=== PATIENT | male | born 1980 | race Caucasian/White ===

== ENCOUNTER → 2017-06-24 | Outpatient (CLI) | payer OTHER ==
[2017-06-24 14:53] LABS: BASO % 0.2 %; BASO ABS # 0.02 K/uL (0-0.2); EOS % 1.4 %; EOS ABS # 0.15 K/uL (0-0.5); HEMATOCRIT 45.3 % (42-52); HEMOGLOBIN 16.5 g/dL (14.0-18.0); IG# 0.04 K/uL (0.00-0.02); LYMPH % 28.7 %; MEAN CELL VOLUME 85.8 fL (80-100); MEAN CORPUSCULAR HEMOGLOBIN 31.3 pg (25-34); MEAN CORPUSCULAR HGB CONC 36.4 g/dl (32-36); MEAN PLATELET VOLUME 10.4 fL (7.4-10.4); MONO % 9.1 %; MONO ABS # 0.95 K/uL (0.11-0.59); NEUT % 60.2 %; NEUT ABS # 6.29 K/uL (1.4-6.5); PLATELET COUNT 260 K/uL (130-400); RED CELL DISTRIBUTION WIDTH CV 12.1 % (11.5-14.5); RED CELL DISTRIBUTION WIDTH SD 37.7 fL (36.4-46.3); WHITE BLOOD COUNT 10.45 K/uL (4.8-10.8)
[2017-06-24 15:22] LABS: ALBUMIN 3.9 gm/dl (3.4-5.0); ALKALINE PHOSPHATASE 70 U/L (45-117); ALT/SGPT 44 U/L (12-78); AST/SGOT 23 U/L (15-37); BLOOD UREA NITROGEN 15 mg/dl (7-18); CALCIUM 9.2 mg/dl (8.5-10.1); CARBON DIOXIDE 33 mmol/L (21-32); CHOLESTEROL 170 mg/dl (0-200); CREATININE 0.97 mg/dl (0.60-1.40); GLUCOSE 90 mg/dl (70-99); LDL CHOLESTEROL CALCULATED 84 mg/dl; POTASSIUM 4.7 mmol/L (3.5-5.1); SODIUM 135 mmol/L (136-145); TOTAL PROTEIN 7.8 gm/dl (6.4-8.2)
== END | disposition home or self-care (01) ==
LOC: C.LAB 14:08
PROVIDERS: ATTEND Family Medicine Hospice and Palliative Medicine
DX: R53.83 Other fatigue (principal); I10 Essential (primary) hypertension; R20.0 Anesthesia of skin